=== PATIENT | female | born 1980 | race Caucasian/White ===

== ENCOUNTER 2016-11-23 11:08 | Emergency (ER) | payer BC ==
[~2016-11-23] VITALS: Ht 165.1 cm; Wt 100.0 kg
[~2016-11-23 11:08] MED LIST: IBU600 MG PO; IRON325 MG PO; ONE DAILY MULTI1 TA1 PO; PERCOCET 325 MG1 TA2 PO; PROVERA 2.5MG2.5 MG PO; SYNTHROID0.1 MG/TAB PO
[2016-11-23 11:15] VITALS: BP 124/79; PULSE 92
[2016-11-23] MEDS ORDERED: PROAIR HFA0.09 MG/AC IH (11:21)
[2016-11-23] MEDS ORDERED: SYNTHROID 0.10.15 MG PO (11:21)
[2016-11-23 12:58] VITALS: TEMP 18
== END 2016-11-23 12:58 | disposition home or self-care (01) ==
LOC: COL.ER 11:08
DX: S93.492A Sprain of other ligament of left ankle, initial encounter (principal); S93.692A Other sprain of left foot, initial encounter; X50.1XXA Overexertion from prolonged static or awkward postures, initial encounter

== ENCOUNTER 2016-12-11 15:18 | Outpatient (RCR) | payer OTHER ==
[~2016-12-11 15:18] MED LIST changes: +PROAIR HFA0.09 MG/AC IH; +SYNTHROID 0.10.15 MG PO
[2016-12-29] MEDS ORDERED: WELLBUTRIN SR150 M1 PO (22:47)
[2016-12-29] MEDS ORDERED: PRENATAL FORMU1 EAC3 PO (22:47)
[2016-12-29] MEDS ORDERED: PREDNISONE20 MG PO (23:05)
== END 2017-01-03 12:17 ==
LOC: WSOH 15:18
DX: S93.402D Sprain of unspecified ligament of left ankle, subsequent encounter (principal); W10.8XXA Fall (on) (from) other stairs and steps, initial encounter; Y92.098 Other place in other non-institutional residence as the place of occurrence of the external cause

== ENCOUNTER 2016-12-29 22:41 | Emergency (ER) | payer BC ==
[~2016-12-29] VITALS: Ht 165.1 cm; Wt 100.0 kg
[2016-12-29 22:44] VITALS: BP 115/62; TEMP 97.9
[2016-12-29] MEDS ORDERED: WELLBUTRIN SR150 M1 PO (22:47)
[2016-12-29] MEDS ORDERED: PRENATAL FORMU1 EAC3 PO (22:47)
[2016-12-29] MEDS ORDERED: PREDNISONE20 MG PO (23:05)
[2016-12-29 23:50] VITALS: PULSE 87
== END 2016-12-29 23:51 | disposition home or self-care (01) ==
LOC: COL.ER 22:41
DX: M25.562 Pain in left knee (principal); J44.9 Chronic obstructive pulmonary disease, unspecified; F17.210 Nicotine dependence, cigarettes, uncomplicated

== ENCOUNTER 2017-01-21 01:17 | Emergency (ER) | payer SELFPAY ==
[~2017-01-21] VITALS: Ht 165.1 cm; Wt 97.7 kg
[~2017-01-21 01:17] MED LIST changes: +PREDNISONE20 MG PO; +PRENATAL FORMU1 EAC3 PO; +WELLBUTRIN SR150 M1 PO
[2017-01-21 01:19] VITALS: PULSE 95; TEMP 98.7
[2017-01-21] MEDS ORDERED: SYNTHROID0.175 MG PO (01:22)
[2017-01-21] MEDS ORDERED: NORCO 325 MG-51 TAB PO (02:17)
[2017-01-21 02:29] VITALS: BP 131/76
== END 2017-01-21 02:30 | disposition home or self-care (01) ==
LOC: COL.ER 01:17
DX: S82.831A Other fracture of upper and lower end of right fibula, initial encounter for closed fracture (principal); W17.89XA Other fall from one level to another, initial encounter; Y92.008 Other place in unspecified non-institutional (private) residence as the place of occurrence of the external cause